=== PATIENT | male | born 1950 | race Caucasian/White ===

== ENCOUNTER 2019-03-01 06:42 | Emergency (ER) | payer MEDICARE ==
[2019-03-01] MEDS ORDERED: Lorazepam 2 MG/ML VIAL ONE (07:00)
[2019-03-01] MEDS ORDERED: Morphine 4 MG/ML VIAL ONE (07:02)
--- NOTE | 2019-03-01 07:53 | CT ---
FCT lumbar spine noncontrast: 03/01/2019 HISTORY: 68-year-old male with low back pain and right lumbar radiculopathy. FINDINGS: Large left upper pole renal cyst. Smaller exophytic right upper pole renal cyst. Vertebral body heigh ts are maintained. No spondylolysis or spondylolisthesis. There are 5 lumbar-type vertebrae. T12-L1: Essentially normal L1-2: Mild disc bulge. No central stenosis. Right lateral-far lateral small disc herniation causing m ild right neural foraminal stenosis. Similar finding with mild left neural foraminal stenosis. L2-3: Diffuse disc bulge. Mild right neural foraminal stenosis. Mild left neural foraminal stenosis. Minimal central stenosis. L3-4: Prominent diffuse disc bulge. Moderate bilateral neural foraminal stenosis. Moderate central sp inal canal stenosis. Posterior epidural fat pad. Somewhat severe thecal sac stenosis. The disc bulge is asymmetrically slightly larger on the right side, probably at least mildly impinging on the right L4 nerve root. L4-5: Diffuse disc bulge. Moderate bilateral neural foraminal stenosis. Moderate bilateral facet DJD. Moderate central spinal canal stenosis. Moderate thecal sac stenosis, asymmetrically greater on the right side where there may be impingement on the right L5 nerve root. L5-S1: Mild to moderate facet DJD. Moderate to severe right neural foraminal stenosis. Mild to modera te left neural foraminal stenosis. Diffuse disc bulge. Mild central stenosis. IMPRESSION: 1. Mild to moderate lumbar spondylosis with multilevel mild and moderate degenerative disc disease. 2. 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 3. Neural foraminal stenosis at multiple levels.
[2019-03-01] MEDS ORDERED: Dexamethasone 10 MG/ML VIAL ONE (08:17)
[2019-03-01] MEDS ORDERED: Fentanyl 100 MCG/2 ML VIAL ONE (09:15)
== END 2019-03-01 09:55 | disposition home or self-care (01) ==
LOC: ERS 06:42
DX: M54.5 Low back pain (principal); I10 Essential (primary) hypertension; Z79.899 Other long term (current) drug therapy
CPT/HCPCS: 72131; 96374; 96375; J1100; J2060; J2270; J3010